=== PATIENT | male | born 1965 | race Caucasian/White ===

== ENCOUNTER 2018-07-26 09:12 | Inpatient (IN) | payer OTHER ==
[2018-07-26 12:26] VITALS: BMI 25.2
--- NOTE | 2018-07-26 13:15 | HP ---
COWS - Scale Resting Pulse: 0= [place] 80 or Below Sweatin= No chills or Flushing Restless Observation: 0= Sits Still Pupil Size: 0= Normal to Room Light Bone or Joint Aches: 1= Mild Discomfort Runny Nose/ Eye Tearin= None GI Upset > 30mins: 0= None Tremor Observation: 0= None Yawning Observation: 0= None Anxiety or Irritability: 2=Irritable/Anxious Goose Flesh Skin: 0=Smooth Skin COWS Score: 3 CIWA Score - Admission Criteria OASAS Guidelines: Admission for Medically Managed Detox: Requires at least one of the followin. CIWA greater than 12 2. Seizures within the past 24 hours 3. Delirium tremens within the past 24 hours 4. Hallucinations within the past 24 hours 5. Acute intervention needed for co occurring medical disorder 6. Acute intervention needed for co occurring psychiatric disorder 7. Severe withdrawal that cannot be handled at a lower level of care (continued vomiting, continued diarrhea, abnormal vital signs) requiring intravenous medication and/or fluids 8. Admission ROS [facility] Allergies/Adverse Reactions: Allergies Allergy/AdvReac Type Severity Reaction Status Date / Time No Known Allergies Allergy Verified 07/26/18 12:13 History of Present Illness: Search Terms: singh morfin, 1965 Search Date: 07/26/2018 01:15:14 PM The Drug Utilization Report below displays all of the controlled substance prescriptions, if any, that your patient has filled in the last twelve months. The information displayed on this report is compiled from pharmacy submissions to the Department, and accurately reflects the information as submitted by the pharmacies. This report was requested by: Ely Reynaga | Reference #: [id number] There are no results for the search terms that you entered. 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 denies methadone use fentanyl - 2-3 x/week tobacco : 1 cig /day pmhx : as above , on Plavix latest taken this morning . 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 Exam Limitations: No Limitations - Ebola screening Have you traveled outside of the country in the last 21 days: No Have you had contact with anyone from an Ebola affected area: No - Review of Systems Constitutional: Loss of Appetite EENT: reports: No Symptoms Reported Respiratory: reports: No Symptoms reported Cardiac: reports: No Symptoms Reported GI: reports: No Symptoms Reported : reports: No Symptoms Reported Musculoskeletal: reports: Other (r le) Integumentary: reports: See HPI Neuro: reports: No Symptoms reported Endocrine: reports: No Symptoms Reported Psychiatric: reports: Mood/Affect Appropiate, Orientated x3 Patient History - Smoking Cessation Smoking history: Current some day smoker Initiated information on smoking cessation: No - Substances abused Heroin Substance route: Inhalation Frequency: Daily Amount used: 7-8 BAGS Age of first use: 11 Date of last use: 07/26/18 Family Disease History - Family Disease History Family Disease History: Diabetes: Father (ppm ), Other: Father, Mother (seizure d/o ), Brother (A & W ), Son ( A & W ) Admission Physical Exam S - Vital Signs Vital Signs: Vital Signs - 24 hr 07/26/18 12:19 Temperature 97.9 F Pulse Rate 76 Respiratory 20 Rate Blood Pressure 119/76 - Physical General Appearance: Yes: Disheveled, Mild Distress HEENTM: Yes: EOMI, Normocephalic, Muffled/Hoarse Voice, Other (poor dentition , many missing teeth) Respiratory: Yes: Chest Non-Tender, Lungs Clear, Normal Breath Sounds, No Respiratory Distress, No Accessory Muscle Use Neck: Yes: No masses,lesions,Nodules, Trachea in good position Cardiology: Yes: Regular Rhythm, Regular Rate, S1, S2 Abdominal: Yes: Non Tender, Soft Back: Yes: Normal Inspection Musculoskeletal: Yes: Other (crutches for ambulation) Extremities: Yes: Pedal Edema, Erythema, Other (r le wound edema nbelow knee , erythema per pt completed abx tx , per d/c paperwork no further instruction left vth toe area distal phalanx cyanosis / gangrene , was evaluated in the ER yesterday per pt told " OK " and no further instructions given . + pedal edema / erythema r foot , + dp) 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: Yes: Alert, Motor Strength 5/5 Integumentary: Yes: Warm, Other (r le wound w/ dressing , c/d/i r anterior thigh donor area of skin graft c/d/i) - Diagnostic (1) Opioid abuse with intoxication, uncomplicated Current Visit: Yes Status: Acute Breathalyzer - Breathalyzer Breathalyzer: 0 Urine Drug Screen - Test Device Lot number: [id number] Expiration date: 04/04/20 - Control Is test valid?: Yes - Results Drug screen NEGATIVE: No Urine drug screen results: FEN-Fentanyl, MOP-Opiates, OXY-Oxycodone, MTD- Methadone Inpatient Rehab Admission - Rehab Decision to Admit Inpatient rehab admission?: No
[2018-07-26] MEDS ORDERED: MAG HYDROX/AL HYDROX/SIMETH 30 ML UNIT-DOSE CUP PO PRN (14:07)
[2018-07-26] MEDS ORDERED: BISMUTH SUBSALICYLATE 524 MG/30 ML UD PO PRN (14:07)
[2018-07-26] MEDS ORDERED: MAGNESIUM HYDROX 2400MG/30ML ORAL SUSPENSION 30 ML CUP PO PRN (14:07)
[2018-07-26] MEDS ORDERED: MENTHOL/PHENOL 1 EACH UD MM PRN (14:07)
[2018-07-26] MEDS ORDERED: MAGNESIUM CITRATE 300 ML BOTTLE PO PRN (14:07)
[2018-07-26] MEDS ORDERED: ACETAMINOPHEN 325 MG TABLET (FP) PO PRN (14:07)
[2018-07-26] MEDS: cloNIDine HCL 0.1 MG TABLET PO PRN (18:41)
[2018-07-26] MEDS: hydrOXYzine PAMOATE 25 MG CAPSULE (FP) PO PRN (18:42)
[2018-07-26] MEDS: THIAMINE HCL 100 MG TABLET (FP) PO SCH (22:06)
[2018-07-26] MEDS: BACITRACIN/POLYMYXIN B SULFATE 15 GM TUBE TP SCH (22:06)
[2018-07-26] MEDS: MELATONIN 5 MG TABLETS PO PRN (22:07)
[2018-07-26] MEDS ORDERED: METHADONE HCL 10 MG TABLET (FOR DETOX USE ONLY) PO ONE (23:00)
--- NOTE | 2018-07-27 09:41 | PN ---
BHS COWS - Scale Resting Pulse: 1= [place] 81-100 Sweatin= Chills/Flushing Restless Observation: 0= Sits Still Pupil Size: 0= Normal to Room Light Bone or Joint Aches: 4=Acute Joint/Muscle Pain Runny Nose/ Eye Tearin= None GI Upset > 30mins: 0= None Tremor Observation of Outstretched Hands: 1= Tremor [place], Not Seen Yawning Observation: 0= None Anxiety or Irritability: 0= None Goose Flesh Skin: 0=Smooth Skin COWS Score: 7 BHS Progress Note (SOAP) Subjective: c/o muscle pain and chills. Objective: 07/27/18 09:40 Vital Signs 07/27/18 07/27/18 06:21 06:30 Temperature 98.7 F Pulse Rate 89 Respiratory 18 18 Rate Blood Pressure 125/81 Labs pending. Assessment: 07/27/18 09:41 AOX3, in no acute distress. Full rom, ambulates in the unit. withdrawal signs Plan: continue detox increase fluids.
[2018-07-27] MEDS ORDERED: METHADONE HCL 5 MG TABLET (FOR DETOX USE ONLY) PO ONE (10:00)
[2018-07-27] MEDS: CLOPIDOGREL BISULFATE 75 MG TABLET (FP) PO SCH (10:19)
[2018-07-27] MEDS: PRENATAL VITAMINS W/ FOLIC ACID TABLET (FP) PO SCH (10:19)
[2018-07-27] MEDS: ASPIRIN 81 MG CHEWABLE TABLETS PO SCH (10:19)
[2018-07-27] MEDS: BACITRACIN/POLYMYXIN B SULFATE 15 GM TUBE TP SCH ×2 (10:21→22:25)
[2018-07-27 10:37] LABS: HEMATOCRIT 33.1 % (35.4-49); HEMOGLOBIN 10.8 GM/dL (11.7-16.9); MCH 28.3 pg (25.7-33.7); MCHC 32.7 g/dl (32.0-35.9); MEAN CELL VOLUME 86.3 fl (80-96); MEAN PLT VOLUME 7.5 fl (7.5-11.1); PLATELET COUNT 392 K/MM3 (134-434); RBC 3.84 M/mm3 (4.00-5.60); RDW 15.5 % (11.9-15.9); WHITE BLOOD COUNT 8.4 K/mm3 (4.0-10.0)
[2018-07-27 10:45] LABS: ALBUMIN 3.1 g/dl (3.4-5.0); BILIRUBIN,TOTAL 0.3 mg/dL (0.2-1); BLOOD UREA NITROGEN 10.4 mg/dL (7-18); CALCIUM 8.3 mg/dL (8.5-10.1); CREATININE 0.7 mg/dL (0.55-1.3); POTASSIUM 3.9 mmol/L (3.5-5.1); TOT PROT 6.4 g/dl (6.4-8.2)
[2018-07-27] MEDS: ACETAMINOPHEN 325 MG TABLET (FP) PO PRN ×3 (11:55→21:56)
[2018-07-27] MEDS: hydrOXYzine PAMOATE 25 MG CAPSULE (FP) PO PRN (21:56)
[2018-07-27] MEDS: THIAMINE HCL 100 MG TABLET (FP) PO SCH (21:56)
[2018-07-27] MEDS: cloNIDine HCL 0.1 MG TABLET PO PRN (21:56)
[2018-07-27] MEDS: MELATONIN 5 MG TABLETS PO PRN (21:57)
[2018-07-28] MEDS ORDERED: METHADONE HCL 10 MG TABLET (FOR DETOX USE ONLY) PO ONE (10:00)
[2018-07-28] MEDS: PRENATAL VITAMINS W/ FOLIC ACID TABLET (FP) PO SCH (10:02)
[2018-07-28] MEDS: ACETAMINOPHEN 325 MG TABLET (FP) PO PRN ×2 (10:03→17:06)
[2018-07-28] MEDS: CLOPIDOGREL BISULFATE 75 MG TABLET (FP) PO SCH (10:03)
[2018-07-28] MEDS: ASPIRIN 81 MG CHEWABLE TABLETS PO SCH (10:04)
[2018-07-28] MEDS: BACITRACIN/POLYMYXIN B SULFATE 15 GM TUBE TP SCH ×2 (11:25→21:52)
--- NOTE | 2018-07-28 11:54 | PN ---
BHS COWS - Scale Resting Pulse: 1= [place] 81-100 Sweatin= No chills or Flushing Restless Observation: 1= Difficult to Sit Still Pupil Size: 2= Moderately Dilated Bone or Joint Aches: 2= Severe Diffuse Aches Runny Nose/ Eye Tearin= Nasal Congestion GI Upset > 30mins: 1= Stomach Cramp Tremor Observation of Outstretched Hands: 0= None Yawning Observation: 0= None Anxiety or Irritability: 2=Irritable/Anxious Goose Flesh Skin: 0=Smooth Skin COWS Score: 10 BHS Progress Note (SOAP) Subjective: co pain, anxiety, poor sleep Objective: 07/28/18 11:53 Vital Signs - 24 hr 07/27/18 07/27/18 07/27/18 13:38 17:37 21:51 Temperature 97.5 F L 97.2 F L 97.7 F Pulse Rate 87 80 81 Respiratory 18 18 18 Rate Blood Pressure 118/76 113/69 118/65 07/28/18 07/28/18 07/28/18 00:30 03:30 06:24 Temperature 97.8 F Pulse Rate 75 Respiratory 18 18 16 Rate Blood Pressure 115/74 07/28/18 09:16 Temperature 98.9 F Pulse Rate 88 Respiratory 18 Rate Blood Pressure 116/77 Laboratory Tests 07/27/18 07/27/18 07/27/18 08:00 08:00 08:00 WBC 8.4 RBC 3.84 L Hgb 10.8 L Hct 33.1 L MCV 86.3 MCH 28.3 MCHC 32.7 RDW 15.5 Plt Count 392 MPV 7.5 Sodium 140 Potassium 3.9 Chloride 106 Carbon Dioxide 28 Anion Gap 6 L BUN 10.4 Creatinine 0.7 Est GFR (CKD-EPI)AfAm 123.13 Est GFR (CKD-EPI)NonAf 106.24 Random Glucose 89 Calcium 8.3 L Total Bilirubin 0.3 AST 27 ALT 29 Alkaline Phosphatase 110 Total Protein 6.4 Albumin 3.1 L RPR Titer Nonreactive ambulating with crutches, ALERT, ORIENTED APPROPRIATE Assessment: 07/28/18 11:53ONGOING WITHDRAWAL POST OP LE PAIN Plan: CONT DETOX PROTOCOL ADD FLEXERIL FOR ORTHO PAIN
[2018-07-28] MEDS: CYCLOBENZAPRINE HCL 10 MG TABLET (FP) PO PRN ×2 (13:02→21:49)
[2018-07-28] MEDS: THIAMINE HCL 100 MG TABLET (FP) PO SCH (21:49)
[2018-07-28] MEDS: hydrOXYzine PAMOATE 25 MG CAPSULE (FP) PO PRN (21:49)
[2018-07-28] MEDS: cloNIDine HCL 0.1 MG TABLET PO PRN (21:49)
[2018-07-28] MEDS: MELATONIN 5 MG TABLETS PO PRN (21:51)
[2018-07-29] MEDS ORDERED: METHADONE HCL 5 MG TABLET (FOR DETOX USE ONLY) PO ONE (06:00)
[2018-07-29 09:12] VITALS: BP 116/74; PULSE 81; TEMP 97.1
--- NOTE | 2018-07-29 22:03 | DS ---
[facility] Detox Discharge Summary Admission Date: 07/26/18 Discharge Date: 07/29/18 - History Present History: Opioid Dependence Additional Comments: PATIENT REFERRED TO [facility] ([place], [place]) FOR AFTERCARE. PATIENT ADVISED TO FOLLOW-UP WITH GIANT TIRE REPAIRER SOON POSSIBLE AFTER DISCHARGE FROM DETOX UNIT FOR GENERAL MEDICAL ASSESSMENT AND FOR HISTORY OF WOUND / DVT OF RIGHT LOWER EXTREMITY. PATIENT VERBALIZED UNDERSTANDING OF RECOMMENDATION. PATIENT DECLINED OFFER OF MEDICATION PRESCRIPTION FOR HOME MEDICATION AT TIME OF DISCHARGE FROM DETOX, NOTING THAT HE CURRENTLY HAS ADEQUATE SUPPLIES OF ALL PRESCRIBED HOME MEDICATIONS WITH HIS BELONGINGS. PATIENT WAS DISCHARGED FROM DETOX UNIT IN STABLE MEDICAL CONDITION. Pertinent Past History: History of Wound / DVT Of Right Lower Extremity. - Physical Exam Results Vital Signs: Vital Signs Temperature 97.1 F L 07/29/18 09:11 Pulse Rate 81 07/29/18 09:11 Respiratory Rate 18 07/29/18 09:11 Blood Pressure 116/74 07/29/18 09:11 O2 Sat by Pulse Oximetry (%) Pertinent Admission Physical Exam Findings: WITHDRAWAL SYMPTOMS. Laboratory Tests 07/27/18 07/27/18 07/27/18 08:00 08:00 08:00 WBC 8.4 RBC 3.84 L Hgb 10.8 L Hct 33.1 L MCV 86.3 MCH 28.3 MCHC 32.7 RDW 15.5 Plt Count 392 MPV 7.5 Sodium 140 Potassium 3.9 Chloride 106 Carbon Dioxide 28 Anion Gap 6 L BUN 10.4 Creatinine 0.7 Est GFR (CKD-EPI)AfAm 123.13 Est GFR (CKD-EPI)NonAf 106.24 Random Glucose 89 Calcium 8.3 L Total Bilirubin 0.3 AST 27 ALT 29 Alkaline Phosphatase 110 Total Protein 6.4 Albumin 3.1 L RPR Titer Nonreactive LABS NOTED. - Treatment Hospital Course: Detox Protocol Followed, Detoxed Safely, Responded well, Discharged Condition Good Patient has Accepted a Rehab Referral to: [facility] ([address], [place]). - Medication Discharge Medications: Ambulatory Orders Aspirin 81 mg PO DAILY 07/26/18 Clopidogrel Bisulfate [Clopidogrel] 75 mg PO DAILY 07/26/18 - Diagnosis (1) Opioid abuse with intoxication, uncomplicated Status: Acute - AMA Did Patient Leave Against Medical Advice: No
== END 2018-07-29 10:23 | disposition home or self-care (01) | DRG 773 ==
LOC: YASAS 09:12 → Y3N 14:56
PROVIDERS: ADMIT Surgery; ATTEND Surgery
PROC: HZ2ZZZZ Detoxification Services for Substance Abuse Treatment (ICD-10-PCS; principal; 2018-07-26)
DX: F11.23 Opioid dependence with withdrawal (principal); F17.210 Nicotine dependence, cigarettes, uncomplicated; L97.818 Non-pressure chronic ulcer of other part of right lower leg with other specified severity; Z86.718 Personal history of other venous thrombosis and embolism; Z79.01 Long term (current) use of anticoagulants; Z59.0 Homelessness
CPT/HCPCS: 36415; 80053; 85027; 86593; J0735

== ENCOUNTER 2018-09-05 08:34 | Inpatient (IN) | payer OTHER ==
[2018-09-05 09:23] VITALS: BMI 25.2
--- NOTE | 2018-09-05 10:13 | HP ---
COWS - Scale Resting Pulse: 0= [place] 80 or Below Sweatin= Chills/Flushing Restless Observation: 1= Difficult to Sit Still Pupil Size: 1= Pupils >than Normal Bone or Joint Aches: 2= Severe Diffuse Aches Runny Nose/ Eye Tearin= Runny Nose/Eyes GI Upset > 30mins: 2= Nausea/Diarrhea Tremor Observation: 2= Slight Tremor Visible Yawning Observation: 2= >3x During Session Anxiety or Irritability: 2=Irritable/Anxious Goose Flesh Skin: 0=Smooth Skin COWS Score: 15 CIWA Score - Admission Criteria OASAS Guidelines: Admission for Medically Managed Detox: Requires at least one of the followin. CIWA greater than 12 2. Seizures within the past 24 hours 3. Delirium tremens within the past 24 hours 4. Hallucinations within the past 24 hours 5. Acute intervention needed for co occurring medical disorder 6. Acute intervention needed for co occurring psychiatric disorder 7. Severe withdrawal that cannot be handled at a lower level of care (continued vomiting, continued diarrhea, abnormal vital signs) requiring intravenous medication and/or fluids 8. Admission ROS S - HPI Chief Complaint: I need help to stop using heroin Allergies/Adverse Reactions: Allergies Allergy/AdvReac Type Severity Reaction Status Date / Time No Known Allergies Allergy Verified 09/05/18 09:17 History of Present Illness: this 53 years old male with heroin dependence,seeking detox,withdrawal symptom, multiple admissions in detox,last admission on 07/26/18 to 07/19/18 [facility] keep relapsing history of fasciotomy and skin gfaft of right leg in 06/23 at [place] history of amputation of right 5th toe 0n 08/06/18 wearing special shoes and ambulation with cane nicotine dependence,would like to have nicotine patch 14 mgs had dvt of right leg no significant period of sobriety plan for rehab after detox Exam Limitations: No Limitations - Ebola screening Have you traveled outside of the country in the last 21 days: No Have you had contact with anyone from an Ebola affected area: No - Review of Systems Constitutional: Chills, Loss of Appetite, Malaise, Night Sweats, Changes in sleep EENT: reports: Tearing, Nose Congestion Respiratory: reports: No Symptoms reported Cardiac: reports: No Symptoms Reported GI: reports: Diarrhea, Nausea, Poor Appetite : reports: No Symptoms Reported Musculoskeletal: reports: Back Pain, Muscle Pain, Other (s/p fasciotomy with skin graft s/p amputation of right 5th toe) Integumentary: reports: Dryness Neuro: reports: Headache, Tremors Endocrine: reports: No Symptoms Reported Hematology: reports: No Symptoms Reported Psychiatric: reports: No Sypmtoms Reported, Judgement Intact, Mood/Affect Appropiate, Orientated x3 Other Systems: Reviewed and Negative Patient History - Patient Medical History Hx Asthma: No Hx Chronic Obstructive Pulmonary Disease (COPD): No Hx Cardiac Disorders: No Hx Congestive Heart Failure: No Hx Hypertension: No Hx Hypercholesterolemia: No Hx Pacemaker: No HX Cerebrovascular Accident: No Hx Seizures: No Hx Dementia: No Hx Diabetes: No Hx Gastrointestinal Disorders: No Hx Liver Disease: No Hx Genitourinary Disorders: No Hx Sexually Transmitted Disorders: No Hx Renal Disease (ESRD): No Hx Thyroid Disease: No Hx Human Immunodeficiency Virus (HIV): No (last in 2018 negative) Hx Hepatitis C: No Hx Depression: No Hx Suicide Attempt: No Hx Bipolar Disorder: No Hx Schizophrenia: No Other Medical History: no suicidal,no homicidal,dvt of right leg,fasciotomy, skin graft,amputation - Patient Surgical History Past Surgical History: Yes Other Surgical History: skin graft R thigh to R calf RLE faschiatomy artherosclerosis RLE bypass gr - PPD History Previous Implant?: Yes Documented Results: Negative w/proof Implanted On Prior [facility] Admission?: Yes Date: 07/28/18 Results: 0 mm PPD to be Administered?: No - Smoking Cessation Smoking history: Current some day smoker Have you smoked in the past 12 months: Yes Aproximately how many cigarettes per day: 4 Hx Chewing Tobacco Use: No Initiated information on smoking cessation: Yes 'Breaking Loose' booklet given: 09/05/18 - Substance & Tx. History Hx Alcohol Use: No Hx Substance Use: Yes Substance Use Type: Heroin Hx Substance Use Treatment: Yes ([facility] 07/26/18 to 07/29/18) - Substances abused Heroin Substance route: Inhalation Frequency: Daily Amount used: 7-8 BAGS Age of first use: 11 Date of last use: 09/04/18 Family Disease History - Family Disease History Family Disease History: Diabetes: Father (ppm ), Other: Father, Mother (seizure d/o ), Brother (A & W ), Son ( A & W ) Admission Physical Exam [facility] - Vital Signs Vital Signs: Vital Signs - 24 hr 09/05/18 09/05/18 09:08 09:37 Temperature 96.6 F L 96.6 F L Pulse Rate 69 69 Respiratory 18 18 Rate Blood Pressure 110/72 110/72 - Physical General Appearance: Yes: Moderate Distress, Tremorous, Irritable, Sweating, Anxious HEENTM: Yes: Normal ENT Inspection, Pharynx Normal Respiratory: Yes: Lungs Clear, Normal Breath Sounds, No Respiratory Distress Neck: Yes: Within Normal Limits, Supple, Trachea in good position Breast: Yes: Within Normal Limits Cardiology: Yes: Within Normal Limits, Regular Rhythm, Regular Rate, S1, S2 Abdominal: Yes: Within Normal Limits, Normal Bowel Sounds, Non Tender, Flat, Soft Genitourinary: Yes: Within Normal Limits Back: Yes: Muscle Spasm Musculoskeletal: Yes: Back pain, Joint Stiffness, Muscle Pain Extremities: Yes: Tremors, Other (s/p amputation of right 5th toe s/p fasciotoy and skin graft right) 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: 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 NML intact, Fully Oriented, Alert, Motor Strength 5/5 Integumentary: Yes: Dry Lymphatic: Yes: Within Normal Limits - Diagnostic (1) Opioid dependence with withdrawal Current Visit: Yes Status: Acute (2) Right leg DVT Current Visit: Yes Status: Acute (3) History of fasciotomy Current Visit: Yes Status: Acute (4) History of skin graft Current Visit: Yes Status: Acute (5) History of complete ray amputation of fifth toe of right foot Current Visit: Yes Status: Acute (6) Use of cane as ambulatory aid Current Visit: Yes Status: Acute Cleared for Admission [facility] - Detox or Rehab [facility] Level of Care: Medically Managed Detox Regimen/Protocol: Methadone Breathalyzer - Breathalyzer Breathalyzer: 0 Urine Drug Screen - Test Device Lot number: [id number] Expiration date: 06/04/20 - Control Is test valid?: Yes - Results Drug screen NEGATIVE: No Urine drug screen results: FEN-Fentanyl, MOP-Opiates, OXY-Oxycodone, MTD- Methadone Inpatient Rehab Admission - Rehab Decision to Admit Inpatient rehab admission?: No
[2018-09-05] MEDS ORDERED: hydrOXYzine HCL 25 MG TABLET (FP) PO PRN (10:34)
[2018-09-05] MEDS ORDERED: MAGNESIUM CITRATE 300 ML BOTTLE PO PRN (10:34)
[2018-09-05] MEDS ORDERED: ACETAMINOPHEN 325 MG TABLET (FP) PO PRN ×2 (10:34)
[2018-09-05] MEDS ORDERED: IBUPROFEN 400 MG TABLET (FP) PO PRN (10:34)
[2018-09-05] MEDS ORDERED: MAGNESIUM HYDROX 2400MG/30ML ORAL SUSPENSION 30 ML CUP PO PRN (10:34)
[2018-09-05] MEDS ORDERED: BISMUTH SUBSALICYLATE 262 MG/15 ML BTL PO PRN (10:34)
[2018-09-05] MEDS ORDERED: MAG HYDROX/AL HYDROX/SIMETH 30 ML UNIT-DOSE CUP PO PRN (10:34)
[2018-09-05] MEDS ORDERED: MENTHOL/PHENOL 1 EACH UD MM PRN (10:34)
[2018-09-05] MEDS ORDERED: cloNIDine HCL 0.1 MG TABLET PO PRN (10:39)
[2018-09-05] MEDS ORDERED: METHADONE HCL 10 MG TABLET (FOR DETOX USE ONLY) PO ONE (11:15)
[2018-09-05] MEDS: NICOTINE 14 MG/24 HOURS TOPICAL PATCH TD SCH (12:22)
[2018-09-05 14:18] LABS: HEMOGLOBIN 10.9 GM/dL (11.7-16.9); MCH 26.9 pg (25.7-33.7); MEAN CELL VOLUME 81.6 fl (80-96); MEAN PLT VOLUME 7.6 fl (7.5-11.1); PLATELET COUNT 369 K/MM3 (134-434); RBC 4.04 M/mm3 (4.00-5.60); RDW 15.8 % (11.9-15.9); WHITE BLOOD COUNT 5.4 K/mm3 (4.0-10.0)
[2018-09-05 14:32] LABS: ALBUMIN 3.5 g/dl (3.4-5.0); BILIRUBIN,TOTAL 0.2 mg/dL (0.2-1); BLOOD UREA NITROGEN 14.8 mg/dL (7-18); CALCIUM 8.9 mg/dL (8.5-10.1); CREATININE 0.8 mg/dL (0.55-1.3); POTASSIUM 3.9 mmol/L (3.5-5.1)
[2018-09-05] MEDS: diazePAM 5 MG TABLET PO PRN (22:31)
[2018-09-05] MEDS: MELATONIN 5 MG TABLETS PO PRN (22:31)
[2018-09-05] MEDS: THIAMINE HCL 100 MG TABLET (FP) PO SCH (22:32)
[2018-09-06] MEDS ORDERED: METHADONE HCL 5 MG TABLET (FOR DETOX USE ONLY) ONE (08:38)
[2018-09-06] MEDS ORDERED: METHADONE HCL 10 MG TABLET (FOR DETOX USE ONLY) ONE (08:39)
[2018-09-06] MEDS: CLOPIDOGREL BISULFATE 75 MG TABLET (FP) PO SCH (09:03)
[2018-09-06] MEDS: ASPIRIN 81 MG CHEWABLE TABLETS PO SCH (09:03)
[2018-09-06] MEDS: PRENATAL VITAMINS W/ FOLIC ACID TABLET (FP) PO SCH (09:03)
[2018-09-06] MEDS: NICOTINE 14 MG/24 HOURS TOPICAL PATCH TD SCH (09:03)
[2018-09-06] MEDS ORDERED: METHADONE (DETOX) 20 MG, METHADONE (DETOX) 5 MG PO ONE (10:00)
--- NOTE | 2018-09-06 13:18 | PN ---
BHS COWS - Scale Resting Pulse: 0= [place] 80 or Below Sweatin=Flushed/Facial Moisture Restless Observation: 1= Difficult to Sit Still Pupil Size: 0= Normal to Room Light Bone or Joint Aches: 1= Mild Discomfort Runny Nose/ Eye Tearin= Nasal Congestion GI Upset > 30mins: 0= None Tremor Observation of Outstretched Hands: 1= Tremor [place], Not Seen Yawning Observation: 1= 1-2x During Session Anxiety or Irritability: 1=Feels Anxious/Irritable Goose Flesh Skin: 0=Smooth Skin COWS Score: 8 BHS Progress Note (SOAP) Subjective: sweats agitation interrupted sleep Objective: 09/06/18 13:18 Vital Signs Temperature 97.3 F L 09/06/18 09:17 Pulse Rate 82 09/06/18 09:17 Respiratory Rate 17 09/06/18 09:17 Blood Pressure 121/70 09/06/18 09:17 O2 Sat by Pulse Oximetry (%) Laboratory Tests 09/05/18 09/05/18 09/05/18 10:22 10:22 10:22 WBC 5.4 RBC 4.04 Hgb 10.9 L Hct 33.0 L MCV 81.6 MCH 26.9 MCHC 33.0 RDW 15.8 Plt Count 369 MPV 7.6 Sodium 137 Potassium 3.9 Chloride 103 Carbon Dioxide 27 Anion Gap 8 BUN 14.8 Creatinine 0.8 Est GFR (CKD-EPI)AfAm 116.56 Est GFR (CKD-EPI)NonAf 100.57 Random Glucose 88 Calcium 8.9 Total Bilirubin 0.2 AST 42 H ALT 35 Alkaline Phosphatase 89 Total Protein 7.0 Albumin 3.5 RPR Titer Nonreactive labs noted aaox3 ambulating no acute distress Assessment: 09/06/18 13:18 withdrawal sx Plan: continue detox increase fluids
[2018-09-06] MEDS: METHOCARBAMOL 500 MG TABLET PO PRN (14:30)
[2018-09-06] MEDS: THIAMINE HCL 100 MG TABLET (FP) PO SCH (22:05)
[2018-09-06] MEDS: MELATONIN 5 MG TABLETS PO PRN (22:05)
[2018-09-06] MEDS: diazePAM 5 MG TABLET PO PRN (22:05)
[2018-09-07] MEDS ORDERED: METHADONE HCL 10 MG TABLET (FOR DETOX USE ONLY) PO ONE (10:00)
[2018-09-07] MEDS: PRENATAL VITAMINS W/ FOLIC ACID TABLET (FP) PO SCH (10:00)
[2018-09-07] MEDS: ASPIRIN 81 MG CHEWABLE TABLETS PO SCH (10:00)
[2018-09-07] MEDS: CLOPIDOGREL BISULFATE 75 MG TABLET (FP) PO SCH (10:00)
[2018-09-07] MEDS: NICOTINE 14 MG/24 HOURS TOPICAL PATCH TD SCH (10:00)
[2018-09-07] MEDS: METHOCARBAMOL 500 MG TABLET PO PRN ×2 (10:02→22:27)
--- NOTE | 2018-09-07 10:49 | PN ---
S COWS - Scale Resting Pulse: 0= [place] 80 or Below Sweatin= Beads of Sweat on Face Restless Observation: 1= Difficult to Sit Still Pupil Size: 0= Normal to Room Light Bone or Joint Aches: 0= None Runny Nose/ Eye Tearin= None GI Upset > 30mins: 0= None Tremor Observation of Outstretched Hands: 2= Slight Tremor Visible Yawning Observation: 1= 1-2x During Session Anxiety or Irritability: 2=Irritable/Anxious Goose Flesh Skin: 0=Smooth Skin COWS Score: 9 S Progress Note (SOAP) Subjective: c/o sweats, anxiety/irritability, and mild shakes. Objective: 09/07/18 10:49 Vital Signs 09/07/18 09/07/18 09/07/18 03:30 06:34 09:42 Temperature 97.3 F L 97.2 F L Pulse Rate 80 73 69 Respiratory 18 18 16 Rate Blood Pressure 105/63 108/60 Lab Results WBC 5.4 K/mm3 (4.0-10.0) 09/05/18 10:22 RBC 4.04 M/mm3 (4.00-5.60) 09/05/18 10:22 Hgb 10.9 GM/dL (11.7-16.9) L 09/05/18 10:22 Hct 33.0 % (35.4-49) L 09/05/18 10:22 MCV 81.6 fl (80-96) 09/05/18 10:22 MCHC 33.0 g/dl (32.0-35.9) 09/05/18 10:22 RDW 15.8 % (11.9-15.9) 09/05/18 10:22 Plt Count 369 K/MM3 (134-434) 09/05/18 10:22 Sodium 137 mmol/L (136-145) 09/05/18 10:22 Potassium 3.9 mmol/L (3.5-5.1) 09/05/18 10:22 Chloride 103 mmol/L (98-107) 09/05/18 10:22 Carbon Dioxide 27 mmol/L (21-32) 09/05/18 10:22 Anion Gap 8 MMOL/L (8-16) 09/05/18 10:22 BUN 14.8 mg/dL (7-18) 09/05/18 10:22 Creatinine 0.8 mg/dL (0.55-1.3) 09/05/18 10:22 Random Glucose 88 mg/dL (74-106) 09/05/18 10:22 Calcium 8.9 mg/dL (8.5-10.1) 09/05/18 10:22 Labs noted. Assessment: 09/07/18 10:49 AOX3, in no acute distress. Full ROM, ambulating in the unit. Withdrawal symptoms. Plan: continue detox.
[2018-09-07] MEDS: diazePAM 5 MG TABLET PO PRN (14:27)
[2018-09-07] MEDS: MELATONIN 5 MG TABLETS PO PRN (22:25)
[2018-09-07] MEDS: THIAMINE HCL 100 MG TABLET (FP) PO SCH (22:25)
[2018-09-08] MEDS ORDERED: METHADONE HCL 5 MG TABLET (FOR DETOX USE ONLY) ONE (09:16)
[2018-09-08] MEDS ORDERED: METHADONE HCL 10 MG TABLET (FOR DETOX USE ONLY) ONE (09:16)
[2018-09-08] MEDS ORDERED: METHADONE (DETOX) 10 MG, METHADONE (DETOX) 5 MG PO ONE (10:00)
[2018-09-08] MEDS: CLOPIDOGREL BISULFATE 75 MG TABLET (FP) PO SCH (10:33)
[2018-09-08] MEDS: ASPIRIN 81 MG CHEWABLE TABLETS PO SCH (10:33)
[2018-09-08] MEDS: NICOTINE 14 MG/24 HOURS TOPICAL PATCH TD SCH (10:33)
[2018-09-08] MEDS: PRENATAL VITAMINS W/ FOLIC ACID TABLET (FP) PO SCH (10:33)
[2018-09-08] MEDS: diazePAM 5 MG TABLET PO PRN (10:35)
--- NOTE | 2018-09-08 16:16 | PN ---
BHS COWS - Scale Resting Pulse: 1= [place] 81-100 Sweatin= Chills/Flushing Restless Observation: 1= Difficult to Sit Still Pupil Size: 0= Normal to Room Light Bone or Joint Aches: 1= Mild Discomfort Runny Nose/ Eye Tearin= Runny Nose/Eyes GI Upset > 30mins: 1= Stomach Cramp Tremor Observation of Outstretched Hands: 2= Slight Tremor Visible Yawning Observation: 0= None Anxiety or Irritability: 1=Feels Anxious/Irritable Goose Flesh Skin: 0=Smooth Skin COWS Score: 10 BHS Progress Note (SOAP) Subjective: Feels ok with meds Objective: 09/08/18 16:14 Last Vital Signs Temp Pulse Resp BP Pulse Ox 97.2 F L 89 18 120/73 09/08/18 13:37 09/08/18 13:37 09/08/18 13:37 09/08/18 13:37 Laboratory Tests 09/05/18 09/05/18 09/05/18 10:22 10:22 10:22 WBC 5.4 RBC 4.04 Hgb 10.9 L Hct 33.0 L MCV 81.6 MCH 26.9 MCHC 33.0 RDW 15.8 Plt Count 369 MPV 7.6 Sodium 137 Potassium 3.9 Chloride 103 Carbon Dioxide 27 Anion Gap 8 BUN 14.8 Creatinine 0.8 Est GFR (CKD-EPI)AfAm 116.56 Est GFR (CKD-EPI)NonAf 100.57 Random Glucose 88 Calcium 8.9 Total Bilirubin 0.2 AST 42 H ALT 35 Alkaline Phosphatase 89 Total Protein 7.0 Albumin 3.5 RPR Titer Nonreactive Labs reviewed Assessment: 09/08/18 16:15 Withdrawal sxs Plan: Continue detox Encouraged PO water intake
[2018-09-08] MEDS: THIAMINE HCL 100 MG TABLET (FP) PO SCH (22:39)
[2018-09-08] MEDS: METHOCARBAMOL 500 MG TABLET PO PRN (22:41)
[2018-09-09] MEDS ORDERED: METHADONE HCL 10 MG TABLET (FOR DETOX USE ONLY) PO ONE (10:00)
[2018-09-09] MEDS: PRENATAL VITAMINS W/ FOLIC ACID TABLET (FP) PO SCH (10:20)
[2018-09-09] MEDS: ASPIRIN 81 MG CHEWABLE TABLETS PO SCH (10:20)
[2018-09-09] MEDS: NICOTINE 14 MG/24 HOURS TOPICAL PATCH TD SCH (10:20)
[2018-09-09] MEDS: CLOPIDOGREL BISULFATE 75 MG TABLET (FP) PO SCH (10:20)
--- NOTE | 2018-09-09 15:12 | PN ---
[facility] CIWA - CIWA Score Nausea/Vomitin-No Nausea/No Vomiting Muscle Tremors: 2 Anxiety: 3 Agitation: 1-Slight > Activity Paroxysmal Sweats: 2 Orientation: 0-Oriented Tacttile Disturbances: 0-None Auditory Disturbances: 0-None Visual Disturbances: 0-None Headache: 0-None Present CIWA-Ar Total Score: 8 [facility] COWS - Scale Resting Pulse: 1= [place] 81-100 Sweatin= Chills/Flushing Restless Observation: 1= Difficult to Sit Still Pupil Size: 0= Normal to Room Light [facility] Progress Note (SOAP) Subjective: Anxious, Sweating, Tremors. Objective: PATIENT A & O X 3, OBSERVED AMBULATING ON UNIT UNASSISTED. IN NO ACUTE DISTRESS. 09/09/18 15:13 Vital Signs Temperature 97.7 F 09/09/18 13:10 Pulse Rate 94 H 09/09/18 13:10 Respiratory Rate 18 09/09/18 13:10 Blood Pressure 118/62 09/09/18 13:10 O2 Sat by Pulse Oximetry (%) Laboratory Tests 09/05/18 09/05/18 09/05/18 10:22 10:22 10:22 WBC 5.4 RBC 4.04 Hgb 10.9 L Hct 33.0 L MCV 81.6 MCH 26.9 MCHC 33.0 RDW 15.8 Plt Count 369 MPV 7.6 Sodium 137 Potassium 3.9 Chloride 103 Carbon Dioxide 27 Anion Gap 8 BUN 14.8 Creatinine 0.8 Est GFR (CKD-EPI)AfAm 116.56 Est GFR (CKD-EPI)NonAf 100.57 Random Glucose 88 Calcium 8.9 Total Bilirubin 0.2 AST 42 H ALT 35 Alkaline Phosphatase 89 Total Protein 7.0 Albumin 3.5 RPR Titer Nonreactive LABS NOTED. Assessment: 09/09/18 15:13 WITHDRAWAL SYMPTOMS. ANEMIA. 09/09/18 15:15 Plan: CONTINUE DETOX. PATIENT IS CURRENTLY RECEIVING DAILY MVI CONTAINING B VITAMINS AND IRON WHILE ADMITTED FOR DETOX. PATIENT SCHEDULED FOR D/C FROM DETOX UNIT TOMORROW.
[2018-09-09] MEDS: MELATONIN 5 MG TABLETS PO PRN (22:12)
[2018-09-09] MEDS: THIAMINE HCL 100 MG TABLET (FP) PO SCH (22:12)
[2018-09-10] MEDS ORDERED: METHADONE HCL 5 MG TABLET (FOR DETOX USE ONLY) PO ONE (06:00)
--- NOTE | 2018-09-10 08:49 | DS ---
[facility] Detox Discharge Summary Admission Date: 09/05/18 Discharge Date: 09/10/18 - History Present History: Opioid Dependence - Physical Exam Results Vital Signs: Vital Signs Temperature 97.2 F L 09/10/18 06:56 Pulse Rate 70 09/10/18 06:56 Respiratory Rate 20 09/10/18 06:56 Blood Pressure 100/55 L 09/10/18 06:56 O2 Sat by Pulse Oximetry (%) Pertinent Admission Physical Exam Findings: pt arrived in withdrawal sx Laboratory Tests 09/05/18 09/05/18 09/05/18 10:22 10:22 10:22 WBC 5.4 RBC 4.04 Hgb 10.9 L Hct 33.0 L MCV 81.6 MCH 26.9 MCHC 33.0 RDW 15.8 Plt Count 369 MPV 7.6 Sodium 137 Potassium 3.9 Chloride 103 Carbon Dioxide 27 Anion Gap 8 BUN 14.8 Creatinine 0.8 Est GFR (CKD-EPI)AfAm 116.56 Est GFR (CKD-EPI)NonAf 100.57 Random Glucose 88 Calcium 8.9 Total Bilirubin 0.2 AST 42 H ALT 35 Alkaline Phosphatase 89 Total Protein 7.0 Albumin 3.5 RPR Titer Nonreactive aaox3 ambulating no acute distress no s/s of withdrawal sx - Treatment Hospital Course: Detox Protocol Followed, Detoxed Safely, Responded well, Discharged Condition Good, Rehab Referral Accepted Patient has Accepted a Rehab Referral to: [facility] - Medication Discharge Medications: Ambulatory Orders Aspirin 81 mg PO DAILY 07/26/18 Clopidogrel Bisulfate [Clopidogrel] 75 mg PO DAILY 07/26/18 - Diagnosis (1) 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
[2018-09-10 09:25] VITALS: BP 124/67; PULSE 111; TEMP 97.9
[2018-09-10] MEDS: ASPIRIN 81 MG CHEWABLE TABLETS PO SCH (10:19)
[2018-09-10] MEDS: CLOPIDOGREL BISULFATE 75 MG TABLET (FP) PO SCH (10:19)
[2018-09-10] MEDS: PRENATAL VITAMINS W/ FOLIC ACID TABLET (FP) PO SCH (10:19)
[2018-09-10] MEDS: NICOTINE 14 MG/24 HOURS TOPICAL PATCH TD SCH (10:20)
== END 2018-09-10 11:05 | disposition home or self-care (01) | DRG 773 ==
LOC: YASAS 08:34 → Y6N 10:39
PROVIDERS: ADMIT Surgery; ATTEND Surgery
PROC: HZ2ZZZZ Detoxification Services for Substance Abuse Treatment (ICD-10-PCS; principal; 2018-09-05)
DX: F11.23 Opioid dependence with withdrawal (principal); F11.220 Opioid dependence with intoxication, uncomplicated; Z89.421 Acquired absence of other right toe(s); R26.2 Difficulty in walking, not elsewhere classified; Z99.89 Dependence on other enabling machines and devices; Z86.718 Personal history of other venous thrombosis and embolism; Z59.0 Homelessness
CPT/HCPCS: 36415; 80053; 85027; 86593

== ENCOUNTER 2018-10-14 13:24 | Inpatient (IN) | payer OTHER ==
[2018-10-14 17:37] VITALS: BMI 28.1
--- NOTE | 2018-10-14 19:31 | HP ---
COWS - Scale Resting Pulse: 1= [place] 81-100 Sweatin= No chills or Flushing Restless Observation: 1= Difficult to Sit Still Pupil Size: 1= Pupils >than Normal Bone or Joint Aches: 2= Severe Diffuse Aches Runny Nose/ Eye Tearin= Nasal Congestion GI Upset > 30mins: 1= Stomach Cramp Tremor Observation: 2= Slight Tremor Visible Yawning Observation: 0= None Anxiety or Irritability: 1=Feels Anxious/Irritable Goose Flesh Skin: 3=Piloerection COWS Score: 13 CIWA Score - Admission Criteria [facility]ASAS Guidelines: Admission for Medically Managed Detox: Requires at least one of the followin. CIWA greater than 12 2. Seizures within the past 24 hours 3. Delirium tremens within the past 24 hours 4. Hallucinations within the past 24 hours 5. Acute intervention needed for co occurring medical disorder 6. Acute intervention needed for co occurring psychiatric disorder 7. Severe withdrawal that cannot be handled at a lower level of care (continued vomiting, continued diarrhea, abnormal vital signs) requiring intravenous medication and/or fluids 8. Admission ROS [facility] Chief Complaint: detox from heroin Allergies/Adverse Reactions: Allergies Allergy/AdvReac Type Severity Reaction Status Date / Time No Known Allergies Allergy Verified 09/05/18 09:17 History of Present Illness: 53M w/ pmh of RLE fasciotomy(2012) for ?DVT, presenting for heroin detox. Sniff heroin 10bags daily. Last usage ~0700. First used at 11y/o. OD x2, last one a couple of weeks ago. Was at [facility] for heroin detox in Sep 2018, sent to [facility] [place] for rehab. Occasional EtOH. Tobacco 1ppd. Denies having h/o methadone, suboxone outpatient clinic. Expresses desire to avoid such clinics. Homeless Exam Limitations: No Limitations - Ebola screening Have you traveled outside of the country in the last 21 days: No Have you had contact with anyone from an Ebola affected area: No - Review of Systems EENT: denies: Blurred Vision, Double Vision Respiratory: denies: Cough, Wheezing Cardiac: denies: Chest Pain, Palpitations GI: denies: Constipated, Diarrhea, Nausea, Vomiting : denies: Burning, Urgency Neuro: denies: Headache, Dizziness Hematology: reports: Blood Clots (RLE DVT) Patient History - Patient Medical History Hx Asthma: No Hx Chronic Obstructive Pulmonary Disease (COPD): No Hx Cardiac Disorders: No Hx Congestive Heart Failure: No Hx Hypertension: No Hx Hypercholesterolemia: No Hx Pacemaker: No HX Cerebrovascular Accident: No Hx Seizures: No Hx Dementia: No Hx Diabetes: No Hx Gastrointestinal Disorders: No Hx Liver Disease: No Hx Genitourinary Disorders: No Hx Sexually Transmitted Disorders: No Hx Renal Disease (ESRD): No Hx Thyroid Disease: No Hx Human Immunodeficiency Virus (HIV): No (last in 2018 negative) Hx Hepatitis C: No Hx Depression: No Hx Suicide Attempt: No Hx Bipolar Disorder: No Hx Schizophrenia: No - Patient Surgical History Past Surgical History: Yes Other Surgical History: skin graft R thigh to R calf RLE faschiatomy artherosclerosis RLE bypass gr - PPD History Date: 07/28/18 Results: 0 mm - Smoking Cessation Smoking history: Current some day smoker Have you smoked in the past 12 months: Yes Aproximately how many cigarettes per day: 4 Hx Chewing Tobacco Use: No Initiated information on smoking cessation: No - Substances abused Heroin Substance route: Inhalation Frequency: Daily Amount used: 10 BAGS Age of first use: 11 Date of last use: 10/14/18 Family Disease History - Family Disease History Family Disease History: Diabetes: Father (ppm ), Other: Father, Mother (seizure d/o ), Brother (A & W ), Son ( A & W ) Admission Physical Exam BHS - Vital Signs Vital Signs: Vital Signs - 24 hr 10/14/18 10/14/18 17:33 17:55 Temperature 98.4 F 98.4 F Pulse Rate 92 H 92 H Respiratory 19 19 Rate Blood Pressure 112/68 112/68 - Physical General Appearance: Yes: No Apparent Distress, Anxious HEENTM: Yes: Normocephalic, Other (moderate temporal wasting). No: Pale Conjunctivae R, Pale Conjunctivae L, Scleral Ictenus R, Scleral Ictenus L Respiratory: Yes: Chest Non-Tender, Lungs Clear, Normal Breath Sounds, No Accessory Muscle Use. No: Respiratory Distress Neck: Yes: Within Normal Limits, Supple, Trachea in good position Cardiology: Yes: Regular Rhythm, Regular Rate, S1, S2. No: Tachycardia, Irregularly Irregular Abdominal: Yes: Non Tender, Soft. No: Guarding, Rebound, Tenderness Extremities: Yes: Non-Tender (nonTTP of calves b/l), Other (RLE with well- healed medial surgical scar. 2+ DP pulses b/l) 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: Yes: Other (somnolent) Integumentary: Yes: Dry, Warm, Other (piloerection) Breathalyzer - Breathalyzer Breathalyzer: 0 Urine Drug Screen - Test Device Lot number: [id number] Expiration date: 07/05/20 - Control Is test valid?: Yes - Results Drug screen NEGATIVE: No Urine drug screen results: ZANDER-Cocaine, FEN-Fentanyl, MOP-Opiates, OXY-Oxycodone Inpatient Rehab Admission - Rehab Decision to Admit Inpatient rehab admission?: No
--- NOTE | 2018-10-14 19:44 | PN ---
Teaching Attending Note Name of Resident: Dung Rankin ATTENDING PHYSICIAN STATEMENT I saw and evaluated the patient. I reviewed the resident's note and discussed the case with the resident. I agree with the resident's findings and plan as documented. SUBJECTIVE: 53 yo male with opioid use disorder here for opioid detox. OBJECTIVE: Vital Signs - 24 hr 10/14/18 10/14/18 17:33 17:55 Temperature 98.4 F 98.4 F Pulse Rate 92 H 92 H Respiratory 19 19 Rate Blood Pressure 112/68 112/68 oriented tremulous ASSESSMENT AND PLAN: pt to be admitted for opioid detox protocol
[2018-10-14] MEDS ORDERED: ACETAMINOPHEN 325 MG TABLET (FP) PO PRN ×2 (19:48)
[2018-10-14] MEDS ORDERED: BISMUTH SUBSALICYLATE 524 MG/30 ML UD PO PRN (19:48)
[2018-10-14] MEDS ORDERED: MAGNESIUM HYDROX 2400MG/30ML ORAL SUSPENSION 30 ML CUP PO PRN (19:48)
[2018-10-14] MEDS ORDERED: METHOCARBAMOL 500 MG TABLET PO PRN (19:48)
[2018-10-14] MEDS ORDERED: MAG HYDROX/AL HYDROX/SIMETH 30 ML UNIT-DOSE CUP PO PRN (19:48)
[2018-10-14] MEDS ORDERED: hydrOXYzine PAMOATE 25 MG CAPSULE (FP) PO PRN (19:48)
[2018-10-14] MEDS ORDERED: cloNIDine HCL 0.1 MG TABLET PO PRN (19:48)
[2018-10-14] MEDS ORDERED: IBUPROFEN 400 MG TABLET (FP) PO PRN (19:48)
[2018-10-14] MEDS ORDERED: MAGNESIUM CITRATE 300 ML BOTTLE PO PRN (19:48)
[2018-10-14] MEDS ORDERED: MENTHOL/PHENOL 1 EACH UD MM PRN (19:48)
[2018-10-14] MEDS ORDERED: MELATONIN 5 MG TABLETS PO PRN (19:48)
[2018-10-14] MEDS: THIAMINE HCL 100 MG TABLET (FP) PO SCH (23:53)
[2018-10-15] MEDS ORDERED: METHADONE HCL 10 MG TABLET (FOR DETOX USE ONLY) ONE (09:08)
[2018-10-15] MEDS ORDERED: METHADONE HCL 5 MG TABLET (FOR DETOX USE ONLY) ONE (09:08)
[2018-10-15] MEDS ORDERED: METHADONE (DETOX) 20 MG, METHADONE (DETOX) 5 MG PO ONE (10:00)
[2018-10-15] MEDS: NICOTINE 14 MG/24 HOURS TOPICAL PATCH TD SCH (10:14)
[2018-10-15] MEDS: ASPIRIN 81 MG CHEWABLE TABLETS PO SCH (10:14)
[2018-10-15] MEDS: PRENATAL VITAMINS W/ FOLIC ACID TABLET (FP) PO SCH (10:14)
[2018-10-15] MEDS: CLOPIDOGREL BISULFATE 75 MG TABLET (FP) PO SCH (10:14)
[2018-10-15] MEDS ORDERED: diazePAM 5 MG TABLET PO PRN (11:38)
--- NOTE | 2018-10-15 11:41 | PN ---
BHS COWS - Scale Resting Pulse: 0= MA 80 or Below Sweatin= Chills/Flushing Restless Observation: 1= Difficult to Sit Still Pupil Size: 0= Normal to Room Light Bone or Joint Aches: 2= Severe Diffuse Aches Runny Nose/ Eye Tearin= Nasal Congestion GI Upset > 30mins: 0= None Tremor Observation of Outstretched Hands: 1= Tremor [place], Not Seen Yawning Observation: 2= >3x During Session Anxiety or Irritability: 2=Irritable/Anxious Goose Flesh Skin: 0=Smooth Skin COWS Score: 10 BHS Progress Note (SOAP) Subjective: body aches sweats shakes irritable agitation Objective: 10/15/18 11:39 Vital Signs Temperature 97.7 F 10/15/18 09:54 Pulse Rate 63 10/15/18 09:54 Respiratory Rate 16 10/15/18 09:54 Blood Pressure 102/62 10/15/18 09:54 O2 Sat by Pulse Oximetry (%) labs pending aaox3 ambulating no acute distress Assessment: 10/15/18 11:40 withdrawals noted Plan: continue detox increase fluids pending labs
[2018-10-15] MEDS: THIAMINE HCL 100 MG TABLET (FP) PO SCH (22:54)
[2018-10-16] MEDS ORDERED: METHADONE HCL 10 MG TABLET (FOR DETOX USE ONLY) PO ONE (10:00)
[2018-10-16] MEDS: ASPIRIN 81 MG CHEWABLE TABLETS PO SCH (10:10)
[2018-10-16] MEDS: CLOPIDOGREL BISULFATE 75 MG TABLET (FP) PO SCH (10:10)
[2018-10-16] MEDS: PRENATAL VITAMINS W/ FOLIC ACID TABLET (FP) PO SCH (10:11)
[2018-10-16] MEDS: NICOTINE 14 MG/24 HOURS TOPICAL PATCH TD SCH (10:11)
--- NOTE | 2018-10-16 11:31 | PN ---
BHS COWS - Scale Resting Pulse: 1= [place] 81-100 Sweatin=Flushed/Facial Moisture Restless Observation: 1= Difficult to Sit Still Pupil Size: 0= Normal to Room Light Bone or Joint Aches: 2= Severe Diffuse Aches Runny Nose/ Eye Tearin= None GI Upset > 30mins: 0= None Tremor Observation of Outstretched Hands: 1= Tremor [place], Not Seen Yawning Observation: 1= 1-2x During Session Anxiety or Irritability: 2=Irritable/Anxious Goose Flesh Skin: 0=Smooth Skin COWS Score: 10 BHS Progress Note (SOAP) Subjective: sweats body aches interrupted sleep anxiety mild shakes Objective: 10/16/18 11:30 Vital Signs Temperature 98.2 F 10/16/18 09:44 Pulse Rate 92 H 10/16/18 09:44 Respiratory Rate 18 10/16/18 09:44 Blood Pressure 129/84 10/16/18 09:44 O2 Sat by Pulse Oximetry (%) labs from his previous visit noted. WNL no need of repeated labs aaox3 ambulating no acute distress Assessment: 10/16/18 11:36 withdrawal sx Plan: continue detox increase fluids
[2018-10-16] MEDS: THIAMINE HCL 100 MG TABLET (FP) PO SCH (22:22)
[2018-10-17] MEDS ORDERED: METHADONE HCL 10 MG TABLET (FOR DETOX USE ONLY) ONE (08:48)
[2018-10-17] MEDS ORDERED: METHADONE HCL 5 MG TABLET (FOR DETOX USE ONLY) ONE (08:48)
[2018-10-17] MEDS ORDERED: METHADONE (DETOX) 10 MG, METHADONE (DETOX) 5 MG PO ONE (10:00)
[2018-10-17] MEDS: CLOPIDOGREL BISULFATE 75 MG TABLET (FP) PO SCH (10:19)
[2018-10-17] MEDS: ASPIRIN 81 MG CHEWABLE TABLETS PO SCH (10:19)
[2018-10-17] MEDS: PRENATAL VITAMINS W/ FOLIC ACID TABLET (FP) PO SCH (10:19)
[2018-10-17] MEDS: NICOTINE 14 MG/24 HOURS TOPICAL PATCH TD SCH (10:19)
--- NOTE | 2018-10-17 13:16 | PN ---
BHS COWS - Scale Resting Pulse: 1= [place] 81-100 Sweatin= Chills/Flushing Restless Observation: 1= Difficult to Sit Still Pupil Size: 0= Normal to Room Light Bone or Joint Aches: 1= Mild Discomfort Runny Nose/ Eye Tearin= None GI Upset > 30mins: 0= None Tremor Observation of Outstretched Hands: 0= None Yawning Observation: 0= None Anxiety or Irritability: 1=Feels Anxious/Irritable Goose Flesh Skin: 0=Smooth Skin COWS Score: 5 BHS Progress Note (SOAP) Subjective: anxiety sweats Objective: 10/17/18 13:15 Vital Signs Temperature 98.1 F 10/17/18 09:36 Pulse Rate 84 10/17/18 09:36 Respiratory Rate 18 10/17/18 09:36 Blood Pressure 108/65 10/17/18 09:36 O2 Sat by Pulse Oximetry (%) aaox3 ambulating no acute distress Assessment: 10/17/18 13:16 mild withdrawals Plan: continue detox increase fluids d/c in am
[2018-10-17] MEDS: THIAMINE HCL 100 MG TABLET (FP) PO SCH (22:22)
[2018-10-18] MEDS ORDERED: METHADONE HCL 10 MG TABLET (FOR DETOX USE ONLY) PO ONE ×2 (06:00→10:00)
[2018-10-18 09:37] VITALS: BP 128/75; PULSE 91; TEMP 97.1
[2018-10-18] MEDS: ASPIRIN 81 MG CHEWABLE TABLETS PO SCH (09:48)
[2018-10-18] MEDS: CLOPIDOGREL BISULFATE 75 MG TABLET (FP) PO SCH (09:48)
[2018-10-18] MEDS: PRENATAL VITAMINS W/ FOLIC ACID TABLET (FP) PO SCH (09:48)
--- NOTE | 2018-10-18 09:52 | DS ---
[facility] Detox Discharge Summary Admission Date: 10/14/18 Discharge Date: 10/18/18 - History Present History: Opioid Dependence - Physical Exam Results Vital Signs: Vital Signs Temperature 97.1 F L 10/18/18 09:36 Pulse Rate 91 H 10/18/18 09:36 Respiratory Rate 17 10/18/18 09:36 Blood Pressure 128/75 10/18/18 09:36 O2 Sat by Pulse Oximetry (%) Pertinent Admission Physical Exam Findings: pt arrived in withdrawals Vital Signs Temperature 97.1 F L 10/18/18 09:36 Pulse Rate 91 H 10/18/18 09:36 Respiratory Rate 10/18/18 09:36 Blood Pressure 128/75 10/18/18 09:36 O2 Sat by Pulse Oximetry (%) aaox3 ambulating no acute distress - Treatment Hospital Course: Detox Protocol Followed, Detoxed Safely, Responded well, Discharged Condition Good, Rehab Referral Accepted - Medication Discharge Medications: Ambulatory Orders Aspirin 81 mg PO DAILY 07/26/18 Clopidogrel Bisulfate [Clopidogrel] 75 mg PO DAILY 07/26/18 - Diagnosis (1) Opioid abuse with intoxication, uncomplicated Current Visit: Yes Status: Acute (2) History of fasciotomy Current Visit: No Status: Chronic (3) History of skin graft Current Visit: No Status: Chronic (4) Opioid dependence with withdrawal Current Visit: Yes Status: Chronic (5) Right leg DVT Current Visit: No Status: Chronic Qualifiers: Chronicity: unspecified - AMA Did Patient Leave Against Medical Advice: No
[2018-10-18] MEDS: NICOTINE 14 MG/24 HOURS TOPICAL PATCH TD SCH (09:57)
[2018-10-19] MEDS ORDERED: METHADONE HCL 5 MG TABLET (FOR DETOX USE ONLY) PO ONE (06:00)
== END 2018-10-18 12:32 | disposition home or self-care (01) | DRG 773 ==
LOC: YASAS 13:24 → Y6N 20:11
PROVIDERS: ADMIT Surgery; ATTEND Surgery
PROC: HZ2ZZZZ Detoxification Services for Substance Abuse Treatment (ICD-10-PCS; principal; 2018-10-14)
DX: F11.23 Opioid dependence with withdrawal (principal); Z86.718 Personal history of other venous thrombosis and embolism; Z79.01 Long term (current) use of anticoagulants; Z94.5 Skin transplant status; Z98.890 Other specified postprocedural states